=== PATIENT | male | born 1990 | race African-American/Black ===

== ENCOUNTER 2022-08-12 07:17 | Emergency (ER) | payer OTHER ==
[~2022-08-12] VITALS: Ht 180.3 cm; Wt 84.1 kg
[2022-08-12 07:18] VITALS: TEMP 97.9
[2022-08-12] MEDS ORDERED: IBUP-1492 PO (08:08)
[2022-08-12] MEDS ORDERED: KETOROLAC TROMETHAMINE 60 MG/2 ML VIAL IM ONE (08:15)
[2022-08-12] MEDS ORDERED: MAG HYDROX/AL HYDROX/SIMETH 30 ML SUSP UDCUP PO ONE (08:30)
[2022-08-12 08:45] VITALS: BP 119/69; PULSE 75; RESP 16
== END 2022-08-12 09:27 | disposition home or self-care (01) ==
LOC: EMS 07:17
DX: S29.012A Strain of muscle and tendon of back wall of thorax, initial encounter (principal); R07.81 Pleurodynia; X50.9XXA Other and unspecified overexertion or strenuous movements or postures, initial encounter; Y93.89 Activity, other specified; Y92.89 Other specified places as the place of occurrence of the external cause; Y99.8 Other external cause status
CPT/HCPCS: 99283; 71047; 96372; J1885